=== PATIENT | male | born 1940 | race Caucasian/White ===

== ENCOUNTER 2020-07-04 10:10 | Outpatient (CLI) | payer OTHER | END 2020-07-04 10:43 | disposition home or self-care (01) | LOC: RAD 10:10 → EDBD 10:10 → RAD 10:43 | PROVIDERS: ATTEND Orthopaedic Surgery | DX: M25.561 Pain in right knee (principal); M25.562 Pain in left knee ==

== ENCOUNTER → 2020-07-26 | Outpatient (CLI) | payer OTHER | END | disposition home or self-care (01) | LOC: MRI 10:20 | PROVIDERS: ATTEND Physical Medicine & Rehabilitation | DX: M25.562 Pain in left knee (principal); S83.242A Other tear of medial meniscus, current injury, left knee, initial encounter; X58.XXXA Exposure to other specified factors, initial encounter; Y93.89 Activity, other specified; Y92.89 Other specified places as the place of occurrence of the external cause; Y99.8 Other external cause status | CPT/HCPCS: 73721 ==